=== PATIENT | female | born 1950 | race Caucasian/White ===

== ENCOUNTER 2016-09-18 08:28 | Emergency (ER) | payer OTHER, MEDICARE ==
[~2016-09-18] VITALS: Ht 157.5 cm; Wt 79.0 kg
[2016-09-18 10:56] VITALS: BP 147/89
== END 2016-09-18 10:50 | disposition left against medical advice (07) ==
LOC: EME 08:28
DX: R10.9 Unspecified abdominal pain (principal); R30.0 Dysuria; R11.0 Nausea; F17.200 Nicotine dependence, unspecified, uncomplicated
CPT/HCPCS: 80048; 81003; 85025; 99281; 99283

== ENCOUNTER 2017-01-22 14:00 | Observation (INO) | payer OTHER, MEDICARE ==
[~2017-01-22] VITALS: Ht 154.9 cm; Wt 82.1 kg
[2017-01-22 15:05] LABS: HEMATOCRIT 43.4 % (36.0-46.0); MCH 29.8 PG (29.0-34.0); MCHC 34.1 G/DL (30.0-36.0); MCV 87.3 FL (83-99); MEAN PLAT.VOLUME 8.9 uM^3 (9.5-12.4); PLATELET COUNT 309 K/uL (156-360); RBC DIS.WIDTH-CV 14.9 % (11.8-14.6); RBC DIS.WIDTH-SD 47.8 % (39-53); RED BLOOD COUNT 4.97 M/uL (3.80-5.20); WHITE BLOOD COUNT 13.9 K/uL (4.1-10.2)
[2017-01-22 15:14] LABS: CHLORIDE 94 mEq/L (99-109); POTASSIUM 4.4 mEq/L (3.7-5.4); SODIUM 136 mEq/L (136-147)
[2017-01-22 15:16] LABS: GLUCOSE 117 mg/dL (70-99)
[2017-01-22 15:17] LABS: ANION GAP 15 MEQ/L (2-14)
[2017-01-22 15:20] LABS: GFR ESTIMATE (CALCULATED) > 59 mL/min/
[2017-01-22 15:21] LABS: UREA NITROGEN (BUN) 13 mg/dL (9-23)
[2017-01-22 15:27] LABS: TROP-I INTERPRETATION NEGATIVE; TROPONIN-I < 0.01 ng/mL (0.0-0.30)
[2017-01-22 16:53] LABS: ADD MIUA? YES; BILIRUBIN NEGATIVE; BLOOD NEGATIVE; COLOR YELLOW ((YELLOW)); GLUCOSE (STRIP) NEGATIVE; KETONES NEGATIVE; LEUKOCYTES LARGE; NITRITE POSITIVE; PROTEIN (STRIP) NEGATIVE; SPECIFIC GRAVITY 1.009 (1.000-1.030); UROBILINOGEN 0.2 MG/DL (0.2-1.0)
[2017-01-22 17:08] LABS: BACTERIA RARE /HPF; EPITHELIAL CELLS RARE /HPF; MUCUS TRACE /LPF; UCUL ADDED? YES; WHITE BLOOD CELLS TNTC /HPF (0-5)
[2017-01-22 18:37] LABS: TROP-I INTERPRETATION NEGATIVE; TROPONIN-I 0.02 ng/mL (0.0-0.30)
[2017-01-22] MEDS ORDERED: HYDROCHLOROTHIA25 MG PO (19:45)
[2017-01-22] MEDS ORDERED: LOSARTAN POTASS50 MG PO (19:46)
[2017-01-22] MEDS ORDERED: LORAZEPAM0.5 MG PO (19:47)
[2017-01-22] MEDS ORDERED: EFFIENT10 MG PO (19:48)
[2017-01-22] MEDS ORDERED: PROAIR HFA8.5 GM IH (19:48)
[2017-01-22] MEDS ORDERED: SYMBICORT60 INHALAT IH (19:49)
[2017-01-22] MEDS ORDERED: SPIRIVA RESPIMAT4 GM IH (19:49)
[2017-01-22] MEDS ORDERED: METFORMIN HCL500 MG PO (19:50)
[2017-01-22] MEDS ORDERED: VITAMIN D-32000 UNI2 PO (19:52)
[2017-01-22] MEDS ORDERED: ADVIL200 M1 PO (19:53)
[2017-01-22] MEDS ORDERED: LO-DOSE ASPIRIN81 M2 PO (19:55)
[2017-01-22 21:29] VITALS: BP 142/64
[2017-01-23 00:42] LABS: TROP-I INTERPRETATION NEGATIVE; TROPONIN-I 0.01 ng/mL (0.0-0.30)
[2017-01-23 02:16] LABS: POINT-OF-CARE METER ID UU13113700
[2017-01-23 03:30] VITALS: BP 174/81
[2017-01-23 06:15] LABS: HEMATOCRIT 42.3 % (36.0-46.0); MCH 29.5 PG (29.0-34.0); MCHC 33.6 G/DL (30.0-36.0); MCV 87.8 FL (83-99); MEAN PLAT.VOLUME 9.2 uM^3 (9.5-12.4); PLATELET COUNT 298 K/uL (156-360); RBC DIS.WIDTH-CV 14.9 % (11.8-14.6); RBC DIS.WIDTH-SD 48.2 % (39-53); RED BLOOD COUNT 4.82 M/uL (3.80-5.20); WHITE BLOOD COUNT 11.1 K/uL (4.1-10.2)
[2017-01-23 06:46] LABS: ANION GAP 11 MEQ/L (2-14); CHLORIDE 101 MEQ/L (99-109); GFR ESTIMATE (CALCULATED) > 59 mL/min/; POTASSIUM 4.7 MEQ/L (3.7-5.4); SAMPLE HEMOLYSIS CHECK 0; SAMPLE ICTERIC CHECK 0; SAMPLE LIPEMIA CHECK 0; SODIUM 137 MEQ/L (136-147); UREA NITROGEN (BUN) 11 mg/dL (9-23)
[2017-01-23 06:48] LABS: GLUCOSE 227 mg/dL (70-99)
[2017-01-23 06:58] LABS: TROP-I INTERPRETATION NEGATIVE; TROPONIN-I 0.02 ng/mL (0.0-0.30)
[2017-01-23 08:21] VITALS: BP 168/68
[2017-01-23 08:29] LABS: POINT-OF-CARE METER ID UU13113700
[2017-01-23] MEDS ORDERED: ZITHROMAX500 MG PO (08:48)
[2017-01-23] MEDS ORDERED: PREDNISONE20 MG PO (08:51)
[2017-01-23] MEDS ORDERED: BENZONATATE200 MG PO (09:50)
== END 2017-01-23 11:07 | disposition home or self-care (01) ==
LOC: EME 14:00 → 5WEST 20:29 → EDOF 20:29 → ENRESERV 20:33 → 5WEST 21:15
PROVIDERS: Hospitalist; Nurse Practitioner Family
DX: R07.9 Chest pain, unspecified (principal); R00.2 Palpitations; J44.1 Chronic obstructive pulmonary disease with (acute) exacerbation; J44.0 Chronic obstructive pulmonary disease with (acute) lower respiratory infection; J20.9 Acute bronchitis, unspecified; F17.210 Nicotine dependence, cigarettes, uncomplicated; R91.8 Other nonspecific abnormal finding of lung field; Z80.1 Family history of malignant neoplasm of trachea, bronchus and lung; R53.1 Weakness; I10 Essential (primary) hypertension; E11.9 Type 2 diabetes mellitus without complications; I25.10 Atherosclerotic heart disease of native coronary artery without angina pectoris; Z95.5 Presence of coronary angioplasty implant and graft; Z82.5 Family history of asthma and other chronic lower respiratory diseases
CPT/HCPCS: 70450; 71020; 71260; 80048; 81003; 82948; 84484; 85027; 87070; 87077; 87086 GA; 87186; 87205; 93005; 94640; 94799; 99202; 99281; 99285; G0378; J1815; J2930; J7030